=== PATIENT | female | born 2000 | race Caucasian/White ===

== ENCOUNTER 2023-02-01 15:21 | Outpatient (CLI) | payer BC ==
[~2023-02-01] VITALS: Ht 167.6 cm; Wt 107.0 kg
[2023-02-01 13:30] VITALS: BP 117/66; PULSE 100; TEMP 97.8
--- NOTE | 2023-02-01 15:30 | NUR ---
Presents to labor and delivery for monitoring. heart tones 150s with accelerations noted. Denies having any contractions. States was using a doppler at home and babys heart rate was high. Let patient know that heart rate at 150s with accelerations at 165. Patient states okay.
== END 2023-02-01 16:20 | disposition home or self-care (01) ==
LOC: LDRO 15:21
DX: Z34.93 Encounter for supervision of normal pregnancy, unspecified, third trimester (principal); Z3A.33 33 weeks gestation of pregnancy

== ENCOUNTER 2023-03-13 10:32 | Inpatient (IN) | payer BC ==
[2023-03-13] VITALS (22 sets, daily range): BP systolic 98–176; BP diastolic 52–80; PULSE 87–110; TEMP 98.1–98.5
[~2023-03-13] VITALS: Ht 167.6 cm; Wt 112.3 kg
[~2023-03-13 10:32] MED LIST: PHENERGAN 25 TA25 MG PO; PRENATAL MVI PO; ZOFRAN ODT4 MG PO; ZOLOFT 100MG100 MG PO
[2023-03-13 11:15] LABS: BASO % 0.2 % (0.0-2.0); GRAN # 10.7 K/mm3 (1.4-6.5); GRAN % 81.4 % (42.2-75.2); HEMATOCRIT 37.4 % (37.0-47.0); HEMOGLOBIN 12.2 g/dl (12.5-16.0); LYMPH # 1.5 K/mm3 (1.2-3.4); LYMPH % 11.2 % (20.0-51.0); MEAN CELL VOLUME 92 fl (80.0-100.0); MEAN CORPUSCULAR HEMOGLOBIN 30 pg (27-31); MEAN CORPUSCULAR HGB CONC 33 g/dl (33.0-37.0); MEAN PLATELET VOLUME 8.6 fl (7.4-10.4); MONO # 0.9 K/mm3 (0.1-0.6); MONO % 6.5 % (1.7-9.3); PLATELET COUNT 343 K/mm3 (130-400); RED BLOOD COUNT 4.06 M/mm3 (4.10-5.30); REDCELL DISTRIBUTION WIDTH-CV 13.5 % (11.5-14.5)
--- NOTE | 2023-03-13 12:17 | NUR ---
PT DIRECT ADMIT FOR LABOR. PT PRESENTS BREATHING THRU CONTRACTIONS AND RATING PAIN 8 OUT OF 10. PT DESIRES EPIDURAL
--- NOTE | 2023-03-13 12:19 | NUR ---
ANESTHESIA NOTIFIED OF PT DESIRE FOR AN EPIDURAL AND IV FLUID BOLUSING. ANESTHESIA STATES THEY WILL BE BEDSIDE SHORTLY FOR PLACEMENT
--- NOTE | 2023-03-13 12:21 | NUR ---
1135 ANESTHESIA BEDSIDE OF EPIDURAL PLACEMENT 1138 PT SITTING ON SIDE OF BED FOR EPIDURAL 1149 PT [facility]I [facility]LERS WITH HIP WEDGE 1150 NO PARISH BEDSIDE 1155 OUT OF ROOM/ANESTHESIA OUT OF ROOM
--- NOTE | 2023-03-13 12:37 | NUR ---
PT SITTING ON SIDE OF BED FOR EPIDURAL PLACEMENT. RN SUPPORTING PATIENT. PT TOLERATED PROCEDURE WELL
--- NOTE | 2023-03-13 14:04 | NUR ---
PT REPOSITIONED TO [facility] WITH HIP WEDGE PER PT REQUEST
--- NOTE | 2023-03-13 14:42 | NUR ---
VERBAL ORDERS FROM [facility] TO LABOR DOWN UNTIL 1500 THEN BEGIN PUSHING. RN ALICIA
--- NOTE | 2023-03-13 16:48 | NUR ---
PT PUSHING WITH CTX, RN REMAINS IN ROOM
--- NOTE | 2023-03-13 16:50 | NUR ---
1535 NO [facility]ISH CALLED FOR DELIVERY. MD STATES SHE IS IN SURGERY AND FOR RN TO CALL [facility] FOR DELIVERY. RN CALLS [facility] FOR DELIVERY, STATES SHE WILL BE UP TO HOSPITAL SHORTLY. 1555 BEDSIDE FOR DELIVERY, DELIVERY TEAM PRESENT.
--- NOTE | 2023-03-13 17:04 | NUR ---
1604 SPONTANEOUS VAGINAL DELIVERY OF VIABLE FEMALE
--- NOTE | 2023-03-13 18:11 | NUR ---
PT SITTING UP IN BED EATING
[2023-03-13] MEDS ORDERED: MOTRIN 800800 MG/TAB PO (18:50)
[2023-03-14] VITALS: BP 131/65; PULSE 81; TEMP 98.2
[2023-03-14 08:12] VITALS: BP 155/131; PULSE 103; TEMP 98.4
[2023-03-14 08:31] VITALS: BP 121/62; PULSE 88
--- NOTE | 2023-03-14 09:25 | NUR ---
Initial visit; Parents thanked Senior Data Architect for offering congratulations and God's blessings for the of their daughter. Senior Data Architect thanked family for choosing [facility].
--- NOTE | 2023-03-14 19:00 | NUR ---
1900 DISMISSED PER AMB TO HOME ACC BY AND BABY
== END 2023-03-14 19:00 | disposition home or self-care (01) | DRG 807 ==
LOC: LDRO 10:32 → OB 11:00 → LDR 11:00 → OB 03-14 02:15
PROVIDERS: ADMIT Obstetrics & Gynecology
PROC: 10E0XZZ Delivery of Products of Conception, External Approach (ICD-10-PCS; principal; 2023-03-13)
PROC: 0KQM0ZZ Repair Perineum Muscle, Open Approach (ICD-10-PCS; 2023-03-13)
PROC: 0UQMXZZ Repair Vulva, External Approach (ICD-10-PCS; 2023-03-13)
DX: O99.344 Other mental disorders complicating childbirth (principal); Z37.0 Single live birth; F41.9 Anxiety disorder, unspecified; Z3A.38 38 weeks gestation of pregnancy; F32.A Depression, unspecified; O99.214 Obesity complicating childbirth; K21.9 Gastro-esophageal reflux disease without esophagitis; O99.62 Diseases of the digestive system complicating childbirth; O70.1 Second degree perineal laceration during delivery; Z23 Encounter for immunization
CPT/HCPCS: J2795; J7120